=== PATIENT | female | born 1945 | race Caucasian/White ===

== ENCOUNTER 2017-11-15 07:14 | Day surgery (SDC) | payer OTHER | END 2017-11-15 12:10 | disposition home or self-care (01) | LOC: AMB-ENDOS 07:14 → CIR.AMB 13:15 | DX: D12.2 Benign neoplasm of ascending colon (principal) ==

== ENCOUNTER 2019-01-02 08:00 | Day surgery (SDC) | payer OTHER | END 2019-01-02 11:45 | disposition home or self-care (01) | LOC: AMB-ENDOS 08:00 | DX: K57.30 Diverticulosis of large intestine without perforation or abscess without bleeding (principal); K64.8 Other hemorrhoids ==